=== PATIENT | male | born 1975 | race Two or more races ===

== ENCOUNTER 2018-01-03 13:45 | Emergency (ER) | payer OTHER ==
--- NOTE | 2018-01-03 14:04 | EDPHY ---
H & P Stated Complaint: ACUTE ONSET OF IRREGULAR HEARTBEAT AT 1245PM TODAY Time Seen by Provider: 01/03/18 13:57 HPI/ROS: CHIEF COMPLAINT: Palpitations HISTORY OF PRESENT ILLNESS: The patient is a 42-year-old man who presents to the emergency department complaining of palpitations. He has a history of SVT. It is very infrequent. He states that it began today while he was getting in his car leaving work. Mild lightheadedness. No chest pain or shortness of breath. No GI symptoms. No diaphoresis. He had a negative stress test a few months ago with his interior paneler Dr. Talley. He was in SVT on arrival here but convert spontaneously before my evaluation. Severity: Moderate Modifying factors: Resolved spontaneously REVIEW OF SYSTEMS: Constitutional: denies: chills, fever, recent illness, recent injury EENTM: denies: blurred vision, double vision, nose congestion Respiratory: denies: cough, shortness of breath Cardiac: See HPI Gastrointestinal/Abdominal: denies: abdominal pain, diarrhea, nausea, vomiting, blood streaked stools Genitourinary: denies: dysuria, frequency, hematuria, pain Musculoskeletal: denies: joint pain, muscle pain Skin: denies: lesions, rash, jaundice, bruising Neurological: denies: headache, numbness, paresthesia, tingling, dizziness, weakness Hematologic/Lymphatic: denies: blood clots, easy bleeding, easy bruising Immunologic/allergic: denies: HIV/AIDS, transplant 10 systems reviewed and negative except as noted EXAM: GENERAL: Well-appearing, well-nourished and in no acute distress. HEAD: Atraumatic, normocephalic. EYES: Pupils equal round and reactive to light, extraocular movements intact, sclera anicteric, conjunctiva are normal. ENT: TMs normal, nares patent, oropharynx clear without exudates. Moist mucous membranes. NECK: Normal range of motion, supple without lymphadenopathy or JVD. LUNGS: Breath sounds clear to auscultation bilaterally and equal. No wheezes rales or rhonchi. HEART: Regular rate and rhythm without murmurs, rubs or gallops. ABDOMEN: Soft, nontender, normoactive bowel sounds. No guarding, no rebound. No masses appreciated. BACK: No CVA tenderness, no spinal tenderness, step-offs or deformities EXTREMITIES: Normal range of motion, no pitting or edema. No clubbing or cyanosis. NEUROLOGICAL: Cranial nerves II through XII grossly intact. Normal speech, normal gait. 5/5 strength, normal movement in all extremities, normal sensation , normal reflexes PSYCH: Normal mood, normal affect. SKIN: Warm, dry, normal turgor, no visible rashes or lesions. Source: Patient Exam Limitations: No limitations - Medical/Surgical History Hx Asthma: No Hx Chronic Respiratory Disease: No Hx Diabetes: No Hx Cardiac Disease: No Hx Renal Disease: No Hx Cirrhosis: No Hx Alcoholism: No Hx HIV/AIDS: No Hx Splenectomy or Spleen Trauma: No Other PMH: HTN, HIGH CHOLESTROL - Family History Significant Family History: No pertinent family hx - Social History Smoking Status: Former smoker Alcohol Use: Sober Drug Use: None Constitutional: Initial Vital Signs Temperature (C) 36.5 C 01/03/18 13:54 Heart Rate 185 H 01/03/18 13:54 Respiratory Rate 20 01/03/18 13:54 Blood Pressure 116/94 H 01/03/18 13:54 O2 Sat (%) 96 01/03/18 13:54 O2 Delivery Mode Room Air Allergies/Adverse Reactions: No Known Allergies Allergy (Unverified 01/03/18 13:54) Home Medications: Medication Instructions Recorded Crestor 01/03/18 Losartan Potassium 01/03/18 Medical Decision Making - Diagnostics EKG Interpretation: An EKG obtained and was read and documented in trace view. Please see trace view for full reading and report. SVT rate of 183 A repeat EKG obtained and was read and documented in trace view. Please see trace view for full reading and report. Sinus rhythm, no acute ischemic changes ED Course/Re-evaluation: Patient's symptoms resolved spontaneously. He is declining further intervention or workup at this time. He is familiar with the symptoms. He already has a interior paneler and had a recent negative stress test. I encouraged him to follow up with Dr. Talley to consider preventative medications. We discussed the side effects of potentially taking daily medications. He agrees with this plan. We discussed indications for returning. Differential Diagnosis: Partial list of the Differential diagnosis considered include but were not limited to; SVT, atrial fibrillation and although unlikely based on the history and physical exam, I also considered acute coronary disease, PE, infection, dissection. I discussed these differential diagnoses and the plan with the patient as well as the usual and expected course. The patient understands that the diagnosis is provisional and that in medicine we are not always correct and that further workup is often warranted. Usual and customary warnings were given. All of the patient's questions were answered. The patient was instructed to return to the emergency department should the symptoms at all worsen or return, otherwise to followup with the physician as we discussed. Departure - Departure Disposition: Home, Routine, Self-Care Clinical Impression: Supraventricular tachycardia Condition: Fair Instructions: Supraventricular Tachycardia (ED) Referrals: Lynnette Green DO [Primary Care Provider] - As per Instructions Arnaldo Talley MD [Medical Doctor] - 5-7 days, call for appt.
--- NOTE | 2018-01-03 14:18 | CPEKG ---
Test Reason : OPEN Blood Pressure : / mmHG Vent. Rate : 107 BPM Atrial Rate : 107 BPM P-R Int : 145 ms QRS Dur : 081 ms QT Int : 345 ms P-R-T Axes : 053 -37 073 degrees QTc Int : 461 ms Sinus tachycardia Probable left ventricular hypertrophy Confirmed by Edy Braswell ([id number]), make up editor Alec Saab ([id number]) on 01/03/2018 2:17:41 PM Referred By: Confirmed By:Edy Braswell
--- NOTE | 2018-01-03 14:18 | CPEKG ---
Test Reason : OPEN Blood Pressure : / mmHG Vent. Rate : 183 BPM Atrial Rate : 000 BPM P-R Int : 000 ms QRS Dur : 085 ms QT Int : 287 ms P-R-T Axes : 000 -31 084 degrees QTc Int : 501 ms Supraventricular tachycardia Probable LVH with secondary repol abnrm Confirmed by Edy Braswell ([id number]), telegraph editor Alec Saab ([id number]) on 01/03/2018 2:17:22 PM Referred By: Confirmed By:Edy Braswell
[2018-01-03 15:05] VITALS: BP 125/88
== END 2018-01-03 15:04 | disposition home or self-care (01) ==
LOC: CED 13:45
DX: I47.1 Supraventricular tachycardia (principal); I10 Essential (primary) hypertension; E78.00 Pure hypercholesterolemia, unspecified; Z79.899 Other long term (current) drug therapy; Z87.891 Personal history of nicotine dependence